=== PATIENT | male | born 1960 | race Caucasian/White ===

== ENCOUNTER 2021-05-02 01:46 | Emergency (ER) | payer BC, SELFPAY ==
[2021-05-02] VITALS (30 sets, daily range): BP systolic 109–149; BP diastolic 68–105; PULSE 68–80; RESP 18–30; TEMP 36.3; O2SAT 93–100
--- NOTE | ~2021-05-02 | CT_ITS ---
EXAMINATION: CTA chest PE protocol EXAM DATE: 05/02/2021 03:27 INDICATION: chest pain hx of AFIB. Ablation Done On 04/30/21. SOB. TECHNIQUE: Spiral CTA of the chest (pulmonary arteries) was performed with 100 cc Omnipaque 350 intr avenous contrast injection. Images were acquired during the pulmonary arterial phase. Coronal maxi mum intensity projection 3D-reconstructions were created by the technologist on dedicated workstation . Axial, coronal and sagittal reformatted images were reviewed. The dose-length product (DLP) for t his examination was 797.43 mGy-cm. The exposure was tailored according to patient size (auto mA exp osure control), and iterative reconstruction (ASIR) was used as additional dose reduction technique. There is no prior study for comparison. FINDINGS: There are no pulmonary emboli in the 1st through 3rd order (central and interlobar) pulmon merlin arteries. Some loss of attenuation in the segmental pulmonary arteries due to respiratory motion , but no intraluminal filling defects suspected. No thoracic aortic dissection. Bibasilar subsegme ntal atelectasis. Trace pericardial and pleural effusions. Tracheobronchial tree is patent. There is no mediastinal, hilar or axillary lymphadenopathy. There is no pneumothorax. There is cardiome rachell. There is moderate coronary arterial calcification, arterial sclerosis. Mildly indistinct gall bladder wall without calcified cholelithiasis. There is thoracic spondylosis without osteoblastic or osteolytic lesions identified. IMPRESSION: 1. No pulmonary emboli. 2. Moderate cardiomegaly. 3. Basilar subsegmental atelectasis. 4. Mildly indistinct but otherwise unremarkable gallbladder. Reviewed, dictated and finalized at location D. MOLD TESTER
--- NOTE | ~2021-05-02 | XR_ITS ---
EXAMINATION: XR chest 2V EXAM DATE: 05/02/2021 02:23 INDICATION: c/p SOB TECHNIQUE: Frontal and lateral projections of the chest obtained and reviewed. Comparison is made to prior examination from 11/20/2017. FINDINGS: The lungs are clear. There are no pleural effusions. Cardiac silhouette is prominent but magnified on this AP technique. There is no pneumothorax suspected. The bones and soft tissues are unremarkable. IMPRESSION: No acute cardiopulmonary findings. Reviewed, dictated and finalized at location D. [employer]IST
--- NOTE | 2021-05-02 02:07 | ECG_ITS ---
Measurements Intervals [place] Rate: 77 P: 37 WI: 268 QRS: 10 QRSD: 108 T: 180 QT: 369 QTc: 419 Interpretive Statements SINUS RHYTHM WITH FIRST DEGREE AV BLOCK DELAYED PRECORDIAL R/S TRANSITION BORDERLINE ST-T WAVE ABNORMALITY- HIGH LATERAL LEADS BASELINE ARTIFACT- I, II, III, AVR, AVL, AVF, V3-V6 ABNORMAL ECG Electronically Signed On 05-02-2021 6:28:34 [employer] by Samuel Negro D.O.
[2021-05-02 02:21] LABS: Basophils Percent Auto 0.2 % (0.2-1.2); Eosinophils Absolute Auto 0.1 K/mm3 (0-0.3); Eosinophils Percent Auto 0.5 % (0-4.4); Hematocrit 37.2 % (42.0-52.0); Immature Granulocyte Absolute 0.05 K/mm3 (0.00-0.031); Immature Granulocyte Percent A 0.4 % (0-0.5); Lymphocytes Absolute Auto 1.52 K/mm3 (0.9-3.2); Lymphocytes Percent Auto 13.4 % (18.3-44.2); Mean Corpuscular HGB Conc 32.3 g/dl (32-36); Mean Corpuscular Hemoglobin 30.5 pg (26-34); Mean Corpuscular Volume 94.4 fl (80-100); Mean Platelet Volume 9.3 fl (7.4-10.4); Monocytes Absolute Auto 0.9 K/mm3 (0.1-0.6); Monocytes Percent Auto 7.7 % (2.6-8.5); Neutrophils Absolute Auto 8.8 K/mm3 (1.3-6.7); Neutrophils Percent Auto 77.8 % (45.5-73.1); Platelet Count Result 150 k/mm3 (150-375); Red Blood Count 3.94 M/mm3 (4.6-6.20); Red Cell Distribution Width 12.2 % (11.5-14.5); White Blood Count 11.4 K/mm3 (4.5-10.0)
[2021-05-02 02:30] LABS: INR 1.4; Prothrombin Time 16.5 Seconds (11.1-14.7)
[2021-05-02 02:45] LABS: Alanine Aminotransferase 23 U/L (4-50); Albumin Level 3.8 g/dL (3.5-5.1); Alkaline Phosphatase 53 U/L (38-126); Anion Gap 5 mmol/L (8-16); Aspartate Amino Transferase 35 U/L (17-59); Bilirubin,Total 0.3 mg/dL (0.2-1.3); Blood Urea Nitrogen 20 mg/dL (9-20); Calcium 8.8 mg/dL (8.4-10.2); Carbon Dioxide 25 mmol/L (22-30); Chloride 106 mmol/L (98-107); Estimated CRCL calculation 76 ml/min; Estimated Glomerular Filt Rate > 60; Glucose 120 mg/dL (65-110); Lipase 26 U/L (23-300); Potassium 3.6 mmol/L (3.4-5.0); Sodium 136 mmol/L (137-145)
--- NOTE | 2021-05-02 03:20 | ED.CHESTPAIN ---
HPI - Chest Pain General Chief Complaint: Chest Pain <Ced Obrien MD - Last Filed: 05/02/21 08:36> Stated Complaint: CHEST PAIN <Ced Obrien MD - Last Filed: 05/02/21 08:36> Time Seen by Provider: 05/02/21 02:43 <Ced Obrien MD - Last Filed: 05/02/21 08:36> Source: patient <Ced Obrien MD - Last Filed: 05/02/21 08:36> History of Present Illness HPI narrative: Patient presents with chest pain. Reports his symptoms started around 9:00 this evening. Patient did report he had an ablation for A. fib/a flutter at [facility] yesterday. Was anticipating some chest pain ever this seems pain was more severe and was associated with shortness of breath and per his discharge directions he was physical the ER to be evaluated. He called EMS they gave aspirin and nitro and he reports feeling much improved. He denied any fevers, cough, congestion. His pain is achy, constant, no clear aggravating or alleviating factors, no radiation. <Ced Obrien MD - Last Filed: 05/02/21 08:36> Related Data Home Medications: Home Medications Medication Instructions Recorded Confirmed carvedilol 25 mg PO BID 05/02/21 lisinopril 10 mg PO DAILY 05/02/21 omeprazole 40 mg PO DAILY 05/02/21 rivaroxaban [Xarelto] 20 mg PO DAILY 05/02/21 rosuvastatin 10 mg PO DAILY 05/02/21 <Ced Obrien MD - Last Filed: 05/02/21 08:36> Allergies/Adverse Reactions: Allergies Allergy/AdvReac Type Severity Reaction Status Date / Time No Known Allergies Allergy Unverified 05/02/21 08:17 <Ced Obrien MD - Last Filed: 05/02/21 08:36> Review of Systems Review of Systems: CONSTITUTIONAL: Denies fever, chills, or sweats. EYES: Denies visual changes, redness, or discharge. ENT: Denies rhinorrhea, congestion, sore throat, or otalgia. CARDIOVASCULAR: Denies palpitations, or edema. RESPIRATORY: Denies cough GASTROINTESTINAL: Denies abdominal pain, nausea, vomiting, or diarrhea. GENITOURINARY: Denies dysuria or hematuria. SKIN: Denies rash or itching. MUSCULOSKELETAL: Denies back pain, joint pain, or myalgia. NEUROLOGIC: Denies headache, numbness, dizziness, or weakness. PSYCHIATRIC: Denies anxiety or depression. <Ced Obrien MD - Last Filed: 05/02/21 08:36> All systems reviewed & are unremarkable except as noted in HPI and below <Ced Obrien MD - Last Filed: 05/02/21 08:36> PMFSH Family History Family History: Family History Grandparent Cerebrovascular accident Mother Family history of Parkinson's disease Other Asthma <Ced Obrien MD - Last Filed: 05/02/21 08:36> Social History Social History: Social History Smoking status: Never smoker Second hand tobacco smoke exposure: No Alcohol intake: current <Ced Obrien MD - Last Filed: 05/02/21 08:36> Exam Narrative: GENERAL: Well-appearing, well-nourished, and in no acute distress. HEAD: Normocephalic, atraumatic. EYES: PERRLA and EOMI. ENT: Nares clear, no rhinorrhea or epistaxis. Mucous membranes moist. NECK: Supple. No masses. No JVD CHEST: Clear to auscultation. No respiratory distress. No wheezes rales or rhonchi HEART: Regular rate and rhythm. No murmur heard. Normal peripheral pulses. ABDOMEN: Soft, nontender, nondistended, normal active bowel sounds. EXTREMITIES: Normal range of motion. No edema. SKIN: Warm, dry, no rash. NEURO: No focal deficits. Alert and oriented x3. PSYCH: Normal mood and affect. <Ced Obrien MD - Last Filed: 05/02/21 08:36> Course Reevaluation(s) Reevaluation #1: Pending cardiology evaluation <Ced Obrien MD - Last Filed: 05/02/21 08:36> Currently patient is asymptomatic, denies any chest pain. Patient ready to go home. <Luciana Solis MD - Last Filed: 05/02/21 09:59> Date: 05/02/21 <Luciana Solis MD -
[2021-05-02 06:32] LABS: Troponin I 0.956 ng/mL (0.000-0.034)
[2021-05-02 06:42] LABS: SARS-CoV-2 RNA PCR Negative
--- NOTE | 2021-05-02 07:38 | PC.NURSE ---
Dr. Obrien at bedside for pt assessment.
[2021-05-02] MEDS: KETOROLAC 15 MG/ML VIAL (*BKC) IV PUSH (08:18)
[2021-05-02 08:24] LABS: Troponin I 0.873 ng/mL (0.000-0.034)
--- NOTE | 2021-05-02 08:35 | PM.CNCAR ---
Assessment and Plan Additional Plan This is a 61-year-old man with a history of atrial flutter and tachycardia mediated cardiomyopathy. He underwent ablation of the caval tricuspid isthmus about 48 hours ago at [facility] with a good result. He is known not to have coronary artery disease as mentioned above. He presents with pain that is probably related to pericarditis following his ablation procedure. He does not have an audible pericardial rub but the quality of the pain certainly is suggestive of that. There is no evidence of a hemopericardium on chest CT. I believe he can receive anti-inflammatory medication. The ER physician has ordered a dose of Toradol for him which he has yet to receive. We can assess his response to that and if he does have improvement he can be discharged. Since he is known not to have coronary artery disease I do not believe we need to admit him for ischemic workup in this setting. Del Dickinson MD [facility] History of Present Illness History of Present Illness Consult date/time: 05/02/21 08:35 Consult reason: chest pain Reason For Visit: CHEST PAIN Narrative: This is a 61-year-old man who I know with a history of atrial flutter and tachycardia mediated cardiomyopathy in the past. I am seeing him in the emergency room because of some chest pain with which he came to the hospital last night and has spent the night in the ER. The patient has a history of atrial arrhythmias and tachycardia mediated cardiomyopathy which was diagnosed initially back in 2014. The patient presented with congestive heart failure in that setting he was treated medically and he was cardioverted back to sinus rhythm after which his LV function improved remarkably. He did well until 2016 when he had a recurrence of atrial flutter. At that time he had some chest discomfort and had a coronary angiogram done which was negative. He once again was cardioverted and was restored back to sinus rhythm. I saw this gentleman in the office for a follow-up visit in February of 2021 at which time he was interestingly asymptomatic but clearly back in atrial flutter with 2-1 conduction. The options of more aggressive antiarrhythmic therapy versus catheter ablation were discussed. He was seen in consultation by electrophysiology over at [facility]. He underwent ablation of the caval tricuspid isthmus on Wednesday of this week with a successful result. He was discharged the following day. He noted the onset of some chest pain last evening. It waxed and waned then it resolved for a short time and then came back in the middle of the night so he came to the emergency room for evaluation. He describes this as a relatively intense retrosternal pressure-like sensation that seems to be worse in the supine position and is affected with deep inspiration and aggravated by that. He does not have any diaphoresis nausea or vomiting. His EKG in the emergency room shows sinus rhythm with first-degree AV block and no acute ST or T-wave abnormalities. He had a CT scan of the chest done which was negative for PE and also did not show any evidence of a pericardial effusion. The patient has a troponin level is slightly elevated at 0.1 and decreasing from that level. Review of Systems Constitutional: Constitutional: Reports no additional constitutional complaints Eyes: Eyes: Reports no additional eye complaints ENT: Reports system reviewed and no additional complaints, except as documented Cardiovascular: Cardiovascular: Reports chest pain Respiratory: Respiratory: Reports no additional respiratory complaints Gastrointestinal: Gastrointestinal: Reports no additional gastrointestinal complaints Musculoskeletal: Musculoskeletal: Reports as per HPI Neurologic: Reports system reviewed and no additional complaints, except as documented Endocrine: Endocrine: Reports no additional endocrine complaints Hematologic/Lymphatic: Hematologic/Lymphatic: Repo
== END 2021-05-02 10:05 | disposition home or self-care (01) ==
PROVIDERS: Emergency Provider Emergency Medicine; PCP Internal Medicine
DX: R07.9 Chest pain, unspecified (principal); I48.92 Unspecified atrial flutter; Z20.822 Contact with and (suspected) exposure to COVID-19; Z79.01 Long term (current) use of anticoagulants; I44.0 Atrioventricular block, first degree; R94.31 Abnormal electrocardiogram [ECG] [EKG]; I51.7 Cardiomegaly
CPT/HCPCS: 36415; 71046; 71275; 80053; 83690; 84484; 85025; 85610; 85730; 93005; 96374; 99284; C9803; J1885; Q9967; U0003; U0005